=== PATIENT | female | born 1965 | race Caucasian/White ===

== ENCOUNTER 2017-11-15 10:03 | Emergency (ER) | payer SELFPAY ==
[~2017-11-15] VITALS: Ht 172.7 cm; Wt 60.0 kg
[2017-11-15 10:22] VITALS: BP 144/84; Ht 172.7 cm; Wt 60.0 kg
[2017-11-15] MEDS ORDERED: HYDROCODONE-APA1 TAB PO (10:23)
[2017-11-15] MEDS ORDERED: ULTRAM50 MG PO (10:23)
[2017-11-15] MEDS ORDERED: CYCLOBENZAPRINE10 MG PO (13:03)
== END 2017-11-15 13:07 | disposition home or self-care (01) ==
LOC: D.ER 10:03
DX: S16.1XXA Strain of muscle, fascia and tendon at neck level, initial encounter (principal); X58.XXXA Exposure to other specified factors, initial encounter; Y93.89 Activity, other specified; Y92.019 Unspecified place in single-family (private) house as the place of occurrence of the external cause; M48.32 Traumatic spondylopathy, cervical region; M62.838 Other muscle spasm; F17.200 Nicotine dependence, unspecified, uncomplicated

== ENCOUNTER 2017-12-08 04:28 | Emergency (ER) | payer SELFPAY ==
[~2017-12-08] VITALS: Ht 172.7 cm; Wt 60.0 kg
[~2017-12-08 04:28] MED LIST: CYCLOBENZAPRINE10 MG PO; HYDROCODONE-APA1 TAB PO; ULTRAM50 MG PO
[2017-12-08 04:34] VITALS: Ht 172.7 cm; Wt 60.0 kg
[2017-12-08 05:02] LABS: APPEARANCE CLEAR (CLEAR); BACTERIA FEW /hpf (NONE SEEN); BILIRUBIN NEGATIVE (NEGATIVE); COLOR YELLOW (YELLOW); EPITHELIAL CELLS 0-5 /hpf (0-5); GLUCOSE NEGATIVE (NEGATIVE); KETONE NEGATIVE (NEGATIVE); NITRITE NEGATIVE (NEGATIVE); PROTEIN NEGATIVE (NEGATIVE); UROBILINOGEN NORMAL (NORMAL); WHITE CELLS - URINE 0-5 /hpf (0-5)
[2017-12-08 05:36] LABS: BASOPHILS 0.2 % (0-2); EOSINOPHILS 1.6 % (0-7); HEMATOCRIT 41.4 % (36.0-48.0); HEMOGLOBIN 13.8 g/dL (12-16); IMMATURE GRANULOCYTES 0.1 % (0-5); LYMPHOCYTES 14.4 % (15-50); MCH 30.3 pg (26.0-34.0); MCHC 33.3 g/dL (31.0-37.0); MCV 90.8 fL (80.0-100.0); MEAN PLATELET VOLUME 9.1 fL (7.4-10.4); MONOCYTES 7.3 % (2-11); NEUTROPHILS 76.4 % (40-80); PLATELET COUNT 197 10x3/uL (130-400); RBC 4.56 10x6/uL (4.00-5.40); RDW 16.3 % (11.5-14.5); WBC 10.4 10x3/uL (4.8-10.8)
[2017-12-08 05:45] LABS: ALBUMIN 3.9 g/dL (3.4-5.0); ANION GAP 13.4 mmol/L (8-16); BILIRUBIN - TOTAL 0.17 mg/dL (0.2-1.3); CALCIUM 8.4 mg/dL (8.5-10.1); CARBON DIOXIDE 26.4 mmol/L (21.0-32.0); CREATININE - SERUM 0.9 mg/dL (0.6-1.3); POTASSIUM - SERUM 3.8 mmol/L (3.5-5.1); PROTEIN - SERUM 7.3 g/dL (6.4-8.2)
[2017-12-08] MEDS ORDERED: FLOMAX0.4 MG PO (06:22)
[2017-12-08 06:30] VITALS: BP 99/73
== END 2017-12-08 06:30 | disposition home or self-care (01) ==
LOC: D.ER 04:28
PROVIDERS: Family Medicine
DX: N20.0 Calculus of kidney (principal); R10.9 Unspecified abdominal pain; R30.0 Dysuria; R39.15 Urgency of urination; R35.0 Frequency of micturition; F17.200 Nicotine dependence, unspecified, uncomplicated

== ENCOUNTER 2017-12-12 13:12 | Emergency (ER) | payer SELFPAY ==
[~2017-12-12] VITALS: Ht 172.7 cm; Wt 60.0 kg
[~2017-12-12 13:12] MED LIST changes: +FLOMAX0.4 MG PO
[2017-12-12 13:18] VITALS: BP 125/77; Ht 172.7 cm; Wt 60.0 kg
[2017-12-12 15:17] LABS: APPEARANCE CLEAR (CLEAR); BILIRUBIN NEGATIVE (NEGATIVE); COLOR YELLOW (YELLOW); GLUCOSE NEGATIVE (NEGATIVE); KETONE NEGATIVE (NEGATIVE); NITRITE NEGATIVE (NEGATIVE); PROTEIN NEGATIVE (NEGATIVE); UROBILINOGEN NORMAL (NORMAL)
[2017-12-12 15:20] LABS: EPITHELIAL CELLS 0-5 /hpf (0-5); RED CELLS - URINE 0-5 /hpf (0-5)
[2017-12-12 15:21] LABS: BACTERIA FEW /hpf (NONE SEEN)
[2017-12-12 16:13] LABS: BASOPHILS 0.4 % (0-2); EOSINOPHILS 0.7 % (0-7); HEMATOCRIT 37.2 % (36.0-48.0); HEMOGLOBIN 12.6 g/dL (12-16); IMMATURE GRANULOCYTES 0.1 % (0-5); LYMPHOCYTES 16.6 % (15-50); MCH 30.6 pg (26.0-34.0); MCHC 33.9 g/dL (31.0-37.0); MCV 90.3 fL (80.0-100.0); MEAN PLATELET VOLUME 8.8 fL (7.4-10.4); MONOCYTES 11.2 % (2-11); PLATELET COUNT 177 10x3/uL (130-400); RBC 4.12 10x6/uL (4.00-5.40); RDW 16.2 % (11.5-14.5); WBC 6.9 10x3/uL (4.8-10.8)
[2017-12-12 16:31] LABS: ALBUMIN 3.6 g/dL (3.4-5.0); ALKALINE PHOSPHATASE 68 U/L (46-116); ALT (SGPT) 16 U/L (10-68); BILIRUBIN - TOTAL 0.15 mg/dL (0.2-1.3); CALC OSMOLALITY 284 mosm/kg (275-300); CALCIUM 8.6 mg/dL (8.5-10.1); CARBON DIOXIDE 26.7 mmol/L (21.0-32.0); CHLORIDE - SERUM 104 mmol/L (98-107); CREATININE - SERUM 0.8 mg/dL (0.6-1.3); GLUCOSE 94 mg/dL (74-106); POTASSIUM - SERUM 3.5 mmol/L (3.5-5.1); PROTEIN - SERUM 7.3 g/dL (6.4-8.2); SODIUM 142 mmol/L (136-145); UREA NITROGEN 19 mg/dL (7-18); eGFR NON AFRICAN AMERICAN 79 mL/min (90-120)
[2017-12-12] MEDS ORDERED: TORADOL10 MG PO ×2 (16:33→16:35)
== END 2017-12-12 16:50 | disposition home or self-care (01) ==
LOC: D.ER 13:12
PROVIDERS: Family Medicine
DX: N13.9 Obstructive and reflux uropathy, unspecified (principal); N20.0 Calculus of kidney; N39.0 Urinary tract infection, site not specified; R11.2 Nausea with vomiting, unspecified

== ENCOUNTER 2018-10-20 11:22 | Emergency (ER) | payer SELFPAY ==
[~2018-10-20] VITALS: Ht 172.7 cm; Wt 61.4 kg
[~2018-10-20 11:22] MED LIST changes: +TORADOL10 MG PO
[2018-10-20 11:26] VITALS: Ht 172.7 cm; Wt 61.4 kg
[2018-10-20] MEDS ORDERED: ULTRAM50 MG PO (11:31)
[2018-10-20] MEDS ORDERED: HYDROCODON-ACE1 EA10 PO (11:32)
[2018-10-20 12:19] LABS: APTT 28.7 SECONDS (22.8-39.4); INR 0.98 (0.85-1.17); PROTIME 12.5 SECONDS (11.6-15.0)
[2018-10-20 12:24] LABS: ALBUMIN 3.4 g/dL (3.4-5.0); ALKALINE PHOSPHATASE 90 U/L (46-116); ALT (SGPT) 15 U/L (10-68); BILIRUBIN - TOTAL 0.18 mg/dL (0.2-1.3); CALC OSMOLALITY 286 mosm/kg (275-300); CALCIUM 8.3 mg/dL (8.5-10.1); CARBON DIOXIDE 29.6 mmol/L (21.0-32.0); CHLORIDE - SERUM 106 mmol/L (98-107); CREATININE - SERUM 0.9 mg/dL (0.6-1.3); GLUCOSE 98 mg/dL (74-106); POTASSIUM - SERUM 3.8 mmol/L (3.5-5.1); PROTEIN - SERUM 6.9 g/dL (6.4-8.2); SODIUM 142 mmol/L (136-145); UREA NITROGEN 25 mg/dL (7-18); eGFR NON AFRICAN AMERICAN 69 mL/min (90-120)
[2018-10-20 12:36] LABS: CKMB 1.6 U/L (0.0-3.6); CREATINE KINASE 87 UL (21-215); PRO BNP 50 pg/mL (0-125); TROPONIN-I < 0.017 ng/mL (0.000-0.060)
[2018-10-20 13:09] LABS: BASOPHILS 0.7 % (0-2); EOSINOPHILS 2.5 % (0-7); HEMOGLOBIN 13.6 g/dL (12-16); LYMPHOCYTES 28.8 % (15-50); MCH 30.6 pg (26.0-34.0); MCV 90.1 fL (80.0-100.0); PLATELET COUNT 204 10x3/uL (130-400); RBC 4.44 10x6/uL (4.00-5.40); RDW 14.7 % (11.5-14.5); WBC 5.5 10x3/uL (4.8-10.8)
[2018-10-20] MEDS ORDERED: SPORANOX100 MG PO (14:50)
[2018-10-20] MEDS ORDERED: ALBUTEROL SULF8.5 GM INH (14:50)
[2018-10-20] MEDS ORDERED: ZPAK PO (14:50)
[2018-10-20 15:07] VITALS: BP 122/74
== END 2018-10-20 15:08 | disposition home or self-care (01) ==
LOC: D.ER 11:22
PROVIDERS: Family Medicine
DX: R05 Cough (principal)

== ENCOUNTER 2019-11-07 09:17 | Emergency (ER) | payer SELFPAY ==
[~2019-11-07] VITALS: Ht 172.7 cm; Wt 68.2 kg
[~2019-11-07 09:17] MED LIST changes: +ALBUTEROL SULF8.5 GM INH; +HYDROCODON-ACE1 EA10 PO; +SPORANOX100 MG PO; +ZPAK PO
[2019-11-07 09:27] VITALS: Ht 172.7 cm; Wt 68.2 kg
[2019-11-07 09:51] LABS: BASOPHILS 0.1 % (0-2); EOSINOPHILS 0 % (0-7); HEMATOCRIT 42.5 % (36.0-48.0); HEMOGLOBIN 14.3 g/dL (12-16); IMMATURE GRANULOCYTES 0.3 % (0-5); LYMPHOCYTES 7.1 % (15-50); MCH 31.2 pg (26.0-34.0); MCHC 33.6 g/dL (31.0-37.0); MCV 92.6 fL (80.0-100.0); MEAN PLATELET VOLUME 10.7 fL (7.4-10.4); MONOCYTES 1.7 % (2-11); NEUTROPHILS 90.8 % (40-80); PLATELET COUNT 206 10x3/uL (130-400); RBC 4.59 10x6/uL (4.00-5.40); RDW 13.8 % (11.5-14.5); WBC 9.5 10x3/uL (4.8-10.8)
[2019-11-07 10:10] LABS: BILIRUBIN NEGATIVE (NEGATIVE); GLUCOSE NEGATIVE (NEGATIVE); NITRITE NEGATIVE (NEGATIVE)
[2019-11-07 10:13] LABS: BACTERIA MODERATE /hpf (NEGATIVE); EPITHELIAL CELLS OCC /hpf (0-5); KETONE SMALL mg/dL (NEGATIVE); WHITE CELLS - URINE 0-5 /hpf (NEGATIVE)
[2019-11-07 10:25] LABS: CALC OSMOLALITY 284 mosm/kg (275-300); CALCIUM 9.7 mg/dL (8.5-10.1); CARBON DIOXIDE 28.1 mmol/L (21.0-32.0); CHLORIDE - SERUM 106 mmol/L (98-107); CREATININE - SERUM 0.8 mg/dL (0.6-1.3); GLUCOSE 138 mg/dL (74-106); POTASSIUM - SERUM 3.6 mmol/L (3.5-5.1); SODIUM 140 mmol/L (136-145); UREA NITROGEN 23 mg/dL (7-18); eGFR NON AFRICAN AMERICAN 78 mL/min (90-120)
[2019-11-07 10:34] LABS: ALKALINE PHOSPHATASE 97 U/L (30-120); ALT (SGPT) 17 U/L (10-68); AMYLASE - SERUM 63 U/L (25-115); BILIRUBIN - TOTAL 0.32 mg/dL (0.2-1.3); LIPASE 72 U/L (73-393); PROTEIN - SERUM 7.2 g/dL (6.4-8.2)
[2019-11-07 10:35] LABS: TROPONIN-I < 0.017 ng/mL (0.000-0.060)
[2019-11-07] MEDS ORDERED: DICLOFENAC SODI50 MG PO (11:22)
[2019-11-07] MEDS ORDERED: FLOMAX0.4 MG PO (11:22)
[2019-11-07] MEDS ORDERED: KEFLEX500 MG PO (11:22)
[2019-11-07] MEDS ORDERED: ZOFRAN ODT4 MG/UDTAB PO (11:22)
[2019-11-07 14:08] VITALS: BP 124/65
== END 2019-11-07 14:09 | disposition home or self-care (01) ==
LOC: D.ER 09:17
PROVIDERS: Family Medicine
DX: R10.9 Unspecified abdominal pain (principal); N20.0 Calculus of kidney; N28.1 Cyst of kidney, acquired; N39.0 Urinary tract infection, site not specified